=== PATIENT | female | born 1990 | race Caucasian/White ===

== ENCOUNTER 2017-01-13 11:30 | Outpatient (CLI) | payer OTHER | END 2017-01-13 11:31 | disposition home or self-care (01) | LOC: LAB.R 11:30 | PROVIDERS: ATTEND Physician Assistant Medical | DX: O91.23 Nonpurulent mastitis associated with lactation (principal) | CPT/HCPCS: 87070; 87205 ==

== ENCOUNTER 2017-03-25 13:20 | Outpatient (CLI) | payer SELFPAY | END 2017-03-25 13:21 | disposition home or self-care (01) | LOC: LAB 13:20 | DX: Z01.89 Encounter for other specified special examinations (principal) | CPT/HCPCS: 36415 ==

== ENCOUNTER 2017-07-27 12:50 | Outpatient (CLI) | payer SELFPAY | END 2017-07-27 12:51 | disposition home or self-care (01) | LOC: LAB 12:50 | DX: Z01.89 Encounter for other specified special examinations (principal) | CPT/HCPCS: 36415 ==

== ENCOUNTER 2019-04-12 13:20 | Outpatient (CLI) | payer OTHER | END 2019-04-12 13:21 | disposition home or self-care (01) | LOC: LAB 13:20 | PROVIDERS: ATTEND Nurse Practitioner Obstetrics & Gynecology | DX: O36.80X0 Pregnancy with inconclusive fetal viability, not applicable or unspecified (principal); Z32.01 Encounter for pregnancy test, result positive; Z3A.00 Weeks of gestation of pregnancy not specified | CPT/HCPCS: 36415; 84702 ==

== ENCOUNTER 2019-04-14 13:36 | Outpatient (CLI) | payer OTHER ==
[2019-04-14 18:10] LABS: HCG UR QUAL NEGATIVE
== END 2019-04-14 13:37 | disposition home or self-care (01) ==
LOC: LAB.S 13:36
PROVIDERS: ATTEND Nurse Practitioner Obstetrics & Gynecology
DX: O36.80X0 Pregnancy with inconclusive fetal viability, not applicable or unspecified (principal); Z32.01 Encounter for pregnancy test, result positive; Z3A.00 Weeks of gestation of pregnancy not specified
CPT/HCPCS: 36415; 81025; 84702

== ENCOUNTER 2023-03-23 08:00 | Outpatient (CLI) | payer OTHER ==
--- NOTE | 2023-03-24 15:09 | XRAY Report ---
PROCEDURE: Thoracic Spine 3 View INDICATIONS: THORACIC BACK PAIN TECHNIQUE: 3 views of the thoracic spine were acquired. COMPARISON: None. FINDINGS: Bones: No fractures or dislocations. No suspicious bony lesions. 12 pairs of ribs are noted, and a ppear intact where visualized. Soft tissues: No paravertebral stripe thickening. IMPRESSION: No acute bony abnormality. No significant degenerative change. Reviewed by: Gali oLpez MD on 03/24/2023 3:08 PM PDT Approved by: Gali Lopez MD on 03/24/2023 3:08 PM PDT Station ID: [id number]
== END 2023-03-23 23:59 | disposition home or self-care (01) ==
LOC: DI.S 08:00
PROVIDERS: ATTEND Physician Assistant Medical
DX: M54.6 Pain in thoracic spine (principal)